=== PATIENT | female | born 1960 | race Caucasian/White ===

== ENCOUNTER 2021-11-01 07:00 | Day surgery (SDC) | payer OTHER ==
[~2021-11-01] VITALS: Ht 170.2 cm; Wt 85.7 kg
[2021-11-01] MEDS ORDERED: LIDOCAINE 2% 100 MG/5 ML UJET TP ONE (08:05)
[2021-11-01] MEDS ORDERED: MIDAZOLAM 5 MG/5 ML VIAL ONE (08:05)
[2021-11-01] MEDS ORDERED: fentaNYL citrate 0.05 MG/ML VIAL ONE (08:05)
== END 2021-11-01 09:15 | disposition home or self-care (01) ==
LOC: MDS 07:00 → MMU 07:01 → MDS 09:15
PROVIDERS: ATTEND Internal Medicine Gastroenterology
DX: Z12.11 Encounter for screening for malignant neoplasm of colon (principal); K57.30 Diverticulosis of large intestine without perforation or abscess without bleeding
CPT/HCPCS: 45378; J2250; J3010